=== PATIENT | male | born 1945 | race Caucasian/White ===

== ENCOUNTER 2020-09-07 23:56 | Emergency (ER) | payer OTHER, MEDICARE ==
[~2020-09-07] VITALS: Ht 182.9 cm; Wt 90.0 kg
[2020-09-08] MEDS ORDERED: ibuprofen tablet 400 MG TABLET PO ONE (01:05)
[2020-09-08] MEDS ORDERED: oxyCODONE/APAP 5-325mg tablet PO ONE ×2 (01:05→02:15)
[2020-09-08] MEDS ORDERED: IBUP-1985 PO (01:39)
[2020-09-08] MEDS ORDERED: OXYC-145 PO (01:39)
[2020-09-08 02:27] VITALS: BP 142/78
== END 2020-09-08 02:30 | disposition home or self-care (01) ==
LOC: ER 23:56
DX: S22.31XA Fracture of one rib, right side, initial encounter for closed fracture (principal); Z85.51 Personal history of malignant neoplasm of bladder; Z72.89 Other problems related to lifestyle; Z88.6 Allergy status to analgesic agent; Z79.899 Other long term (current) drug therapy; W19.XXXA Unspecified fall, initial encounter; Z91.81 History of falling; Y93.89 Activity, other specified; Y92.89 Other specified places as the place of occurrence of the external cause; Y99.8 Other external cause status
CPT/HCPCS: 71101; 99284

== ENCOUNTER 2021-05-15 17:19 | Emergency (ER) | payer OTHER, MEDICARE ==
[~2021-05-15] VITALS: Ht 182.9 cm; Wt 79.5 kg
[~2021-05-15 17:19] MED LIST: IBUP-1985 PO; OXYC-145 PO
[2021-05-15 17:42] VITALS: BP 150/73
[2021-05-15] MEDS ORDERED: HYDR-3972 PO (18:00)
== END 2021-05-15 18:24 | disposition home or self-care (01) ==
LOC: ER 17:20
DX: R07.81 Pleurodynia (principal); Z72.0 Tobacco use; Z79.899 Other long term (current) drug therapy; Z60.2 Problems related to living alone; W19.XXXA Unspecified fall, initial encounter; Y93.89 Activity, other specified; Y92.89 Other specified places as the place of occurrence of the external cause; Y99.8 Other external cause status
CPT/HCPCS: 99283

== ENCOUNTER 2021-05-20 23:17 | Emergency (ER) | payer OTHER, MEDICARE ==
[~2021-05-20 23:17] MED LIST changes: +HYDR-3972 PO
== END 2021-05-20 23:35 | disposition left against medical advice (07) ==
LOC: ER 23:18
DX: R04.0 Epistaxis (principal); R07.81 Pleurodynia; R07.89 Other chest pain; Z60.2 Problems related to living alone; Z79.899 Other long term (current) drug therapy
CPT/HCPCS: 99281